=== PATIENT | female | born 1955 | race Caucasian/White ===

== ENCOUNTER → 2024-09-01 09:28 | Outpatient (REF) | payer MEDICARE, BC, SELFPAY | LOC: WDC 09:28 | DX: N63.14 Unspecified lump in the right breast, lower inner quadrant (principal) | CPT/HCPCS: 76642; 77062; 77066 ==

== ENCOUNTER → 2025-09-08 11:52 | Outpatient (REF) | payer MEDICARE, BC, SELFPAY ==
[2025-09-08 16:22] LABS: Urine Character Clear (Clear)
[2025-09-08 17:54] LABS: Urine Red Blood Cell 0-2 /HPF (0-2); Urine Squamous Cell 0-2 /LPF (Few); Urine White Cell 0-2 /HPF (0-5)
== END ==
LOC: HWLAB 11:52
DX: R39.9 Unspecified symptoms and signs involving the genitourinary system (principal)
CPT/HCPCS: 81003; 81015; 87086